=== PATIENT | male | born 1955 | race Caucasian/White ===

== ENCOUNTER 2024-03-11 09:18 | Day surgery (SDC) | payer MEDICARE ==
[2024-03-10 13:17] VITALS: BMI 25.9
[2024-03-11 10:25] LABS: Hemoglobin 15.1 g/dL (13.5-17.5); Mean Corpuscular HGB CONC 32.1 g/dL (32.0-36.0); Mean Corpuscular Hemoglobin 30.8 pg (27.0-33.0); Mean Corpuscular Volume 95.7 fL (81.2-95.1); Mean Platelet Volume 9.4 fL (7.4-10.4); Platelet Count 233 10x3/uL (150-450); RBC Distribution Width 13.1 % (11.5-14.5); Red Blood Cell (RBC) Count 4.91 10x6/uL (4.32-5.72); White Blood Cell (WBC) Count 10.4 10x3/uL (3.5-10.5)
[2024-03-11] MEDS ORDERED: Bupivacaine PF 0.5% 30 ML VIAL ONE (10:39)
[2024-03-11] MEDS ORDERED: CEFAZOLIN 2 GM VIAL ONE (10:39)
[2024-03-11] MEDS ORDERED: PROPOFOL 40 ML ONE (11:35)
[2024-03-11] MEDS ORDERED: Lidocaine 1% PF 5 ML VIAL ONE (11:35)
[2024-03-11] MEDS ORDERED: fentaNYL 50 mcg/mL 1 mL Vial ONE (11:35)
[2024-03-11] MEDS ORDERED: Ondansetron PF 4 MG/2 ML Vial ONE (11:35)
[2024-03-11] MEDS ORDERED: Dexamethasone 4 mg/ml Vial ONE (11:35)
[2024-03-11] MEDS ORDERED: ePHEDrine Sulfate 50 MG/10 ML VIAL ONE (11:36)
[2024-03-11] MEDS ORDERED: PHENYLEPHRINE-NS 100 MCG/ML 10 ML SYRINGE ONE (11:36)
[2024-03-11] MEDS ORDERED: HYDROcodone/Acetaminophen 5/325 mg Tablet ONE (13:26)
[2024-03-17 16:12] LABS: Fungus Stain Final report (.)
== END 2024-03-11 13:50 | disposition home or self-care (01) ==
LOC: CSHSDC 09:18
PROVIDERS: ATTEND Podiatrist Foot & Ankle Surgery
PROC: 0Y6S0Z3 Detachment at Left 2nd Toe, Low, Open Approach (ICD-10-PCS; principal; 2024-03-11)
PROC: 0Y6U0Z3 Detachment at Left 3rd Toe, Low, Open Approach (ICD-10-PCS; 2024-03-11)
DX: M86.172 Other acute osteomyelitis, left ankle and foot (principal); E78.5 Hyperlipidemia, unspecified; M48.00 Spinal stenosis, site unspecified; I73.9 Peripheral vascular disease, unspecified; I10 Essential (primary) hypertension; Z88.0 Allergy status to penicillin; Z88.8 Allergy status to other drugs, medicaments and biological substances; Z88.5 Allergy status to narcotic agent; Z79.899 Other long term (current) drug therapy; Z98.890 Other specified postprocedural states
CPT/HCPCS: 28810 ×2; 73620; 85027; 87070; 87075; 87077; 87102; 87205; 87206; 93005; J0665; J1100; J2405; J2704; J3010; 88305; 88311; 93010